=== PATIENT | female | born 2000 | race Caucasian/White ===

== ENCOUNTER 2025-10-10 04:26 | Emergency (ER) | payer MEDICAID ==
[~2025-10-10] VITALS: Ht 167.6 cm; Wt 95.0 kg
[2025-10-10 04:30] VITALS: O2SAT 99
[2025-10-10] MEDS: ONDANSETRON 4MG ODT PO ONE (05:20)
[2025-10-10 05:33] LABS: BASOPHILS % 0.2 % (0.0-2.0); EOSINOPHILS % 0.7 % (0.0-5.0); HEMATOCRIT. 38.5 % (36.0-48.0); HEMOGLOBIN. 12.7 g/dL (12.0-16.0); LYMPHOCYTES % 30.3 % (20.0-50.0); MEAN PLATELET VOLUME 9.8 fl (7.4-10.4); MONOCYTES % 7.5 % (2.0-8.0); NEUTROPHILS % 61.3 % (40.0-76.0); PLATELET 235 x1000/uL (130-400); RED BLOOD CELL COUNT 4.30 mill/uL (4.2-5.4); RED CELL DISTRIBUTION WIDTH 13.2 % (11.6-14.6)
[2025-10-10 05:55] LABS: HCG SCREEN NEGATIVE
[2025-10-10 06:05] LABS: CREATININE 0.7 mg/dL (0.6-1.0); UREA NITROGEN BLOOD 7 mg/dL (9-23)
[2025-10-10 06:06] LABS: PROTEIN TOTAL 7.7 g/dL (6.0-8.3)
[2025-10-10 06:07] LABS: ASPARTATE AMINOTRANSFERASE 14 IU/L (<34); BILIRUBIN DIRECT 0.1 mg/dL (<=3.0)
[2025-10-10 06:08] LABS: BILIRUBIN TOTAL 0.4 mg/dL (0.1-1.0)
[2025-10-10] MEDS: ACETAMINOPHEN 325MG TABLET PO ONE (06:26)
[2025-10-10 10:19] VITALS: BP 104/67; PULSE 62; RESP 15; TEMP 36.9; O2SAT 97
[2025-10-10] MEDS ORDERED: IOHEXOL-350 100 ML BOTTLE ONE (12:40)
== END 2025-10-10 10:29 | disposition home or self-care (01) ==
LOC: ER 04:26 → CMPBEDREQ 11:41
DX: R00.2 Palpitations (principal); R11.2 Nausea with vomiting, unspecified; R23.2 Flushing; E11.9 Type 2 diabetes mellitus without complications; I10 Essential (primary) hypertension
CPT/HCPCS: 99285; 71275; 71045; 80076; 80048; 84703; 83690; 85025; 85379; 36415; 93005; Q9967; Q0162